=== PATIENT | female | born 1980 | race Native Hawaiian/Other Pacific Islander ===

== ENCOUNTER 2017-07-05 09:35 | Emergency (ER) | payer BC ==
[2017-07-05 09:41] VITALS: BP 114/69; PULSE 54; RESP 18; TEMP 97.6; BMI 31.1
[2017-07-05 09:43] VITALS: O2SAT 98
--- NOTE | 2017-07-05 09:55 | ED PDOC ---
Upper Extremity Pain/Injury Time Seen by Provider: 07/05/17 09:43 Chief Complaint (Nursing): Abnormal Skin Integrity History Per: Patient Onset/Duration Of Symptoms: Hrs (1) Severity: Mild Additional Complaint(s): Avulsion laceration to right distal thumb while cutting with knife this AM. No other injury Past Medical History Vital Signs: Last Vital Signs Temp 97.6 F 07/05/17 09:40 Pulse 54 L 07/05/17 09:40 Resp 18 07/05/17 09:40 BP 114/69 07/05/17 09:40 Pulse Ox 98 07/05/17 09:41 - Family History Family History: States: Unknown Family Hx - Allergies Allergies/Adverse Reactions: Allergies Allergy/AdvReac Type Severity Reaction Status Date / Time Unobtainable Allergy Verified 07/05/17 09:52 Review of Systems Musculoskeletal: Positive for: Hand Pain Physical Exam - Physical Exam Appears: Positive for: Non-toxic, No Acute Distress Skin: Positive for: Normal Color, Warm, DRY Extremity: Positive for: Other (Right hand thumb distal phalanx, distal tip lateral border. 0.5 cm avulsion partially involving laterat distal nail. No Motior deficits) - ECG O2 Sat by Pulse Oximetry: 98 Medical Decision Making Medical Decision Making: Dressed with gel foam dressing Disposition - Clinical Impression Clinical Impression: Skin avulsion - Patient ED Disposition Is Patient to be Admitted: No Counseled Patient/Family Regarding: Diagnosis, Need For Followup - Disposition Referrals: [facility] [Outside] Disposition: Routine/Home Disposition Time: 09:56 Condition: FAIR Instructions: Wound Care
[2017-07-05] MEDS ORDERED: Absorbable Gelatin Sponge Size 12-7 ONE (09:59)
== END 2017-07-05 10:33 | disposition home or self-care (01) ==
LOC: H.ER 09:35
DX: S61.011A Laceration without foreign body of right thumb without damage to nail, initial encounter (principal); W26.0XXA Contact with knife, initial encounter